=== PATIENT | female | born 1935 | race Caucasian/White ===

== ENCOUNTER 2018-02-01 11:58 | Inpatient (IN) | payer MEDICARE, BC ==
[~2018-02-01] VITALS: Ht 162.6 cm; Wt 65.8 kg
[~2018-02-01 11:58] MED LIST: ASCO-316 PO; ASPI-986 PO; ATOR80TA PO; CLOP75TA16 PO; CYAN1TAB43 PO; METO25TA6 PO; NIFE30TA94 PO; SALM1CAP4 PO; VITA100012 PO; VITA100014 PO; [UNRECOGNIZED DRUG - CODE] PO
[2018-02-01] MEDS ORDERED: SODIUM CHLORIDE 0.9% 500 ML IV ONE (13:49)
[2018-02-01 14:50] LABS: EOSINOPHILS % 2.5 % (0.0-5.0); HEMATOCRIT. 37.5 % (36.0-48.0); HEMOGLOBIN. 12.8 g/dL (12.0-16.0); LYMPHOCYTES % 24.1 % (20.0-50.0); MEAN CORPUSCULAR HEMOGLOBIN 32.5 pg (28.0-32.0); MEAN CORPUSCULAR VOLUME 94.9 fL (81.0-99.0); MEAN PLATELET VOLUME 9.9 fl (7.4-10.4); MONOCYTES % 9.6 % (2.0-8.0); NEUTROPHILS % 62.8 % (40.0-76.0); PLATELET 221 x1000/uL (130-400); RED BLOOD CELL COUNT 3.95 mill/uL (4.2-5.4); RED CELL DISTRIBUTION WIDTH 13.6 % (11.6-14.6)
[2018-02-01 14:57] LABS: CHLORIDE 104 mEq/L (98-107)
[2018-02-01 14:58] LABS: PROTHROMBIN TIME 10.5 sec (9.1-11.1)
[2018-02-01 15:05] LABS: CREATINE KINASE 48 IU/L (26-192)
[2018-02-01 15:08] LABS: CREATINE KINASE MB FRACTION < 1.0 ng/mL (0.5-3.6)
[2018-02-01] MEDS ORDERED: POTASSIUM CHLORIDE 20MEQ TABLET SR PO ONE (16:30)
[2018-02-01 16:36] LABS: CLARITY URINE CLOUDY (CLEAR); COLOR URINE YELLOW (YELLOW); KETONES URINE NEGATIVE (NEGATIVE); LEUKOCYTE ESTERASE URINE TRACE (NEGATIVE); NITRITE URINE NEGATIVE (NEGATIVE); OCCULT BLOOD URINE NEGATIVE (NEGATIVE); PH URINE 5.5 (4.5-8.0); PROTEIN URINE NEGATIVE (NEGATIVE); SPECIFIC GRAVITY URINE 1.009 (1.005-1.030); UROBILINOGEN URINE 0.2 E.U./dL (0.2-1.0)
[2018-02-01 17:40] VITALS: BP 129/59
[2018-02-01 17:52] VITALS: BP 129/59
[2018-02-01] MEDS ORDERED: ACETAMINOPHEN 325MG TABLET PO PRN (18:00)
[2018-02-01] MEDS ORDERED: CLONIDINE 0.1MG TABLET PO PRN (18:00)
[2018-02-01] MEDS ORDERED: ENOXAPARIN 40MG/0.4ML SYR SUBCUT SCH (18:00)
[2018-02-01 20:00] VITALS: BP 119/56
[2018-02-01] MEDS: SODIUM CHLORIDE 0.9% 1,000 ML IV SCH (20:33)
[2018-02-01] MEDS ORDERED: ATORVASTATIN CALCIUM 40MG TABLET PO SCH (21:00)
[2018-02-02] VITALS: BP 116/58
[2018-02-02 04:00] VITALS: BP 120/64
[2018-02-02] MEDS: SODIUM CHLORIDE 0.9% 1,000 ML IV SCH (07:43)
[2018-02-02 07:55] LABS: BASOPHILS % 0.8 % (0.0-2.0); HEMATOCRIT. 33.9 % (36.0-48.0); HEMOGLOBIN. 11.7 g/dL (12.0-16.0); LYMPHOCYTES % 30.5 % (20.0-50.0); MEAN CORPUSCULAR HEMOGLOBIN 32.8 pg (28.0-32.0); MEAN CORPUSCULAR VOLUME 94.8 fL (81.0-99.0); MONOCYTES % 12.5 % (2.0-8.0); NEUTROPHILS % 52.2 % (40.0-76.0); PLATELET 188 x1000/uL (130-400); RED BLOOD CELL COUNT 3.58 mill/uL (4.2-5.4); RED CELL DISTRIBUTION WIDTH 13.5 % (11.6-14.6)
[2018-02-02 08:00] VITALS: BP 127/61
[2018-02-02 08:14] LABS: CHLORIDE 109 mEq/L (98-107)
[2018-02-02 08:27] LABS: PHOSPHORUS 3.1 mg/dL (2.5-4.9)
[2018-02-02] MEDS ORDERED: LISINOPRIL 20MG TABLET PO SCH (09:00)
[2018-02-02] MEDS ORDERED: HYDROCHLOROTHIAZIDE 25MG TABLET PO SCH (09:00)
[2018-02-02] MEDS ORDERED: NIFEDIPINE XL 30MG TAB PO SCH (09:00)
[2018-02-02] MEDS ORDERED: ASPIRIN 325MG TABLET PO SCH (09:00)
[2018-02-02] MEDS ORDERED: METOPROLOL TARTRATE 25MG TABLET PO SCH (09:00)
[2018-02-02] MEDS ORDERED: FISH OIL/OMEGA-3 FATTY ACIDS 1000MG CAPSULE PO SCH (09:00)
[2018-02-02] MEDS ORDERED: ASCORBIC ACID 500 MG TABLET PO SCH (09:00)
[2018-02-02] MEDS ORDERED: LACTOBACILLUS GG CAPSULE PO SCH (10:00)
[2018-02-02] MEDS ORDERED: CYANOCOBALAMIN/FA/PYRIDOXINE TABLET PO SCH (11:00)
[2018-02-02 11:08] VITALS: BP 127/61
[2018-02-02 12:00] VITALS: BP 148/60
[2018-02-02 12:09] LABS: VITAMIN B12 SERUM 390 pg/mL (211-911)
[2018-02-02 12:12] LABS: FOLIC ACID (FOLATE) SERUM > 20.00 ng/mL (>5.38)
[2018-02-02 14:20] LABS: FERRITIN 28 ng/mL (10-291)
[2018-02-02 14:46] LABS: TOTAL IRON BINDING CAPACITY 219 ug/dL (250-450)
== END 2018-02-02 12:15 | disposition home or self-care (01) | DRG 641 ==
LOC: ER 11:58 → 6EST 15:51 → EDBEDREQ 15:54 → EDBEDREQTM 15:54 → ENRESERV 16:01
PROVIDERS: ADMIT Family Medicine Adult Medicine; ATTEND Family Medicine Adult Medicine
DX: E86.0 Dehydration (principal); R19.7 Diarrhea, unspecified; D64.9 Anemia, unspecified; E78.00 Pure hypercholesterolemia, unspecified; E78.5 Hyperlipidemia, unspecified; E87.6 Hypokalemia; I10 Essential (primary) hypertension; K44.9 Diaphragmatic hernia without obstruction or gangrene; Z96.659 Presence of unspecified artificial knee joint; Z79.82 Long term (current) use of aspirin; Z79.899 Other long term (current) drug therapy
CPT/HCPCS: 36415; 71045; 74176; 80048; 82270; 82550; 82553; 82607; 82728; 82746; 83540; 83550; 83735; 84100; 87015; 87045; 87427; 87449; 87493; 89055; 93005; 96360; 99285; J1650; J7030; J7040